=== PATIENT | female | born 1935 | race Caucasian/White ===

== ENCOUNTER 2016-12-14 09:04 | Emergency (ER) | payer OTHER ==
[~2016-12-14] VITALS: Ht 160 cm; Wt 78.2 kg
[~2016-12-14 09:04] MED LIST: ALPRAZOLAM0.5 MG PO; BUMETANIDE1 MG PO; CIPROFLOXACIN500 M1 PO; CRESTOR10 MG PO; GLUCOSAMINE1000 MG PO; LEVOTHYROXINE50 MCG PO; LEVOTHYROXINE75 MCG PO; LO-DOSE ASPIRIN81 M2 PO; METOPROLOL SUCC50 MG PO; Niacin PO; PROBIOTIC & AC1 EACH PO; SYNTHROID75 MCG PO; Toprol XL PO
[2016-12-14 10:41] LABS: HEMATOCRIT 36.2 % (36.0-46.0); MCH 28.2 PG (29.0-34.0); MCHC 32.9 G/DL (30.0-36.0); MCV 85.8 FL (83-99); MEAN PLAT.VOLUME 9.4 uM^3 (9.5-12.4); PLATELET COUNT 217 K/uL (156-360); RBC DIS.WIDTH-SD 40.7 % (39-53); RED BLOOD COUNT 4.22 M/uL (3.80-5.20); WHITE BLOOD COUNT 9.2 K/uL (4.1-10.2)
[2016-12-14 10:50] LABS: CHLORIDE 107 mEq/L (99-109); POTASSIUM 4.2 mEq/L (3.7-5.4); SODIUM 141 mEq/L (136-147)
[2016-12-14 10:51] LABS: GLUCOSE 103 mg/dL (70-99)
[2016-12-14 10:53] LABS: ANION GAP 11 MEQ/L (2-14)
[2016-12-14 10:55] LABS: GFR ESTIMATE (CALCULATED) > 59 mL/min/
[2016-12-14 10:56] LABS: UREA NITROGEN (BUN) 6 mg/dL (9-23)
[2016-12-14 11:03] LABS: ADD MIUA? YES; BILIRUBIN NEGATIVE; BLOOD SMALL; COLOR STRAW ((YELLOW)); GLUCOSE (STRIP) NEGATIVE; KETONES NEGATIVE; LEUKOCYTES NEGATIVE; NITRITE NEGATIVE; PROTEIN (STRIP) NEGATIVE; SPECIFIC GRAVITY 1.004 (1.000-1.030); UROBILINOGEN 0.2 MG/DL (0.2-1.0)
[2016-12-14 11:05] LABS: BACTERIA RARE /HPF; EPITHELIAL CELLS RARE /HPF; MUCUS NONE SEEN /LPF; RED BLOOD CELLS 0-5 /HPF (0-5); UCUL ADDED? NO; WHITE BLOOD CELLS 0-5 /HPF (0-5)
[2016-12-14] MEDS ORDERED: LEVAQUIN750 MG PO (12:21)
[2016-12-14] MEDS ORDERED: PROVENTIL HFA6.7 GM IH (12:21)
[2016-12-14] MEDS ORDERED: PHENERGAN-CODE120 ML PO (12:21)
[2016-12-14] MEDS ORDERED: PREDNISONE20 MG PO (12:21)
[2016-12-14 12:44] VITALS: BP 195/98
== END 2016-12-14 12:47 | disposition home or self-care (01) ==
LOC: EME 09:04
PROVIDERS: Emergency Medicine
DX: J45.909 Unspecified asthma, uncomplicated (principal); I10 Essential (primary) hypertension; E11.9 Type 2 diabetes mellitus without complications; Z87.440 Personal history of urinary (tract) infections; Z95.5 Presence of coronary angioplasty implant and graft; Z95.0 Presence of cardiac pacemaker; Z79.84 Long term (current) use of oral hypoglycemic drugs; Z79.82 Long term (current) use of aspirin
CPT/HCPCS: 71020; 80048; 81003; 85027; 87086; 93005; 94640 76; 99281; 99285; J7512

== ENCOUNTER 2016-12-18 19:58 | Observation (INO) | payer OTHER ==
[~2016-12-18] VITALS: Ht 160 cm; Wt 76.7 kg
[~2016-12-18 19:58] MED LIST changes: +LEVAQUIN750 MG PO; +PHENERGAN-CODE120 ML PO; +PREDNISONE20 MG PO; +PROVENTIL HFA6.7 GM IH
[2016-12-18 20:38] LABS: HEMATOCRIT 36.9 % (36.0-46.0); MCH 27.7 PG (29.0-34.0); MCHC 33.1 G/DL (30.0-36.0); MCV 83.9 FL (83-99); MEAN PLAT.VOLUME 9.4 uM^3 (9.5-12.4); PLATELET COUNT 254 K/uL (156-360); RBC DIS.WIDTH-SD 39.8 % (39-53); WHITE BLOOD COUNT 10.3 K/uL (4.1-10.2)
[2016-12-18 20:55] LABS: CHLORIDE 102 mEq/L (99-109); SODIUM 138 mEq/L (136-147)
[2016-12-18 20:56] LABS: GLUCOSE 112 mg/dL (70-99)
[2016-12-18 20:58] LABS: ANION GAP 12 MEQ/L (2-14)
[2016-12-18 21:00] LABS: GFR ESTIMATE (CALCULATED) > 59 mL/min/
[2016-12-18 21:01] LABS: UREA NITROGEN (BUN) 12 mg/dL (9-23)
[2016-12-18 21:07] LABS: TROP-I INTERPRETATION NEGATIVE; TROPONIN-I < 0.01 ng/mL (0.0-0.30)
[2016-12-19] MEDS ORDERED: CATAPRES0.1 MG PO ×2 (00:16→12:20)
[2016-12-19] MEDS ORDERED: MIRALAX17 GM PO (00:17)
[2016-12-19] MEDS ORDERED: PLAVIX75 MG PO (00:17)
[2016-12-19] MEDS ORDERED: SOTALOL80 MG PO (00:17)
[2016-12-19] MEDS ORDERED: ROBITUSSIN100 MG/5 M PO (00:17)
[2016-12-19] MEDS ORDERED: SODIUM BICARBO325 MG PO (00:17)
[2016-12-19] MEDS ORDERED: ATIVAN1 MG PO (00:18)
[2016-12-19] MEDS ORDERED: CARVEDILOL6.25 MG PO (00:18)
[2016-12-19] MEDS ORDERED: LOTENSIN20 MG PO (00:18)
[2016-12-19] MEDS ORDERED: TYLENOL WITH C1 EACH PO (00:19)
[2016-12-19] MEDS ORDERED: DITROPAN XL5 MG PO (00:19)
[2016-12-19 01:59] VITALS: BP 119/86
[2016-12-19 04:20] LABS: ADD MIUA? NO; BILIRUBIN NEGATIVE; BLOOD NEGATIVE; COLOR STRAW ((YELLOW)); GLUCOSE (STRIP) NEGATIVE; KETONES NEGATIVE; LEUKOCYTES NEGATIVE; NITRITE NEGATIVE; PROTEIN (STRIP) NEGATIVE; SPECIFIC GRAVITY 1.002 (1.000-1.030); UCUL ADDED? NO; UROBILINOGEN 0.2 MG/DL (0.2-1.0)
[2016-12-19 05:18] LABS: HEMATOCRIT 34.2 % (36.0-46.0); MCH 28.4 PG (29.0-34.0); MCHC 33.6 G/DL (30.0-36.0); MCV 84.4 FL (83-99); MEAN PLAT.VOLUME 9.3 uM^3 (9.5-12.4); PLATELET COUNT 214 K/uL (156-360); RBC DIS.WIDTH-CV 13.2 % (11.8-14.6); RBC DIS.WIDTH-SD 40.5 % (39-53); RED BLOOD COUNT 4.05 M/uL (3.80-5.20); WHITE BLOOD COUNT 9.6 K/uL (4.1-10.2)
[2016-12-19 06:00] LABS: ALKALINE PHOSPHATASE 37 IU/L (3-129); ANION GAP 7 MEQ/L (2-14); CHLORIDE 101 MEQ/L (99-109); GFR ESTIMATE (CALCULATED) > 59 mL/min/; GLUCOSE 95 mg/dL (70-99); POTASSIUM 3.5 MEQ/L (3.7-5.4); SAMPLE HEMOLYSIS CHECK 0; SAMPLE ICTERIC CHECK 0; SAMPLE LIPEMIA CHECK 0; SODIUM 140 MEQ/L (136-147); UREA NITROGEN (BUN) 11 mg/dL (9-23)
[2016-12-19 08:00] VITALS: BP 179/94
[2016-12-19] MEDS ORDERED: NORVASC5 MG PO (12:37)
[2016-12-19] MEDS ORDERED: ZONATUSS150 MG PO (12:38)
[2016-12-19] MEDS ORDERED: LIDOCAINE700 MG TP (12:39)
== END 2016-12-19 13:55 | disposition home or self-care (01) ==
LOC: EME 19:58 → 5WEST 23:28 → EDOF 23:28 → ENRESERV 23:30 → EDOF 12-19 01:41 → 5WEST 12-19 01:42
PROVIDERS: Emergency Medicine; Internal Medicine
DX: I16.0 Hypertensive urgency (principal); I10 Essential (primary) hypertension; R07.9 Chest pain, unspecified; I25.10 Atherosclerotic heart disease of native coronary artery without angina pectoris; Z95.5 Presence of coronary angioplasty implant and graft; J45.909 Unspecified asthma, uncomplicated; J40 Bronchitis, not specified as acute or chronic; I44.7 Left bundle-branch block, unspecified; Z95.0 Presence of cardiac pacemaker; E78.5 Hyperlipidemia, unspecified; E03.9 Hypothyroidism, unspecified; E11.9 Type 2 diabetes mellitus without complications; F41.9 Anxiety disorder, unspecified; M17.0 Bilateral primary osteoarthritis of knee; R26.89 Other abnormalities of gait and mobility; Z87.442 Personal history of urinary calculi; Z79.82 Long term (current) use of aspirin; Z79.02 Long term (current) use of antithrombotics/antiplatelets; Z88.0 Allergy status to penicillin
CPT/HCPCS: 70450; 71020; 80048; 80053; 81003; 84484; 85027; 93005; 94640; 99202; 99281; 99285; G0378; J1644